=== PATIENT | female | born 1945 | race Caucasian/White ===

== ENCOUNTER 2021-07-30 14:14 | Inpatient (IN) | payer MEDICARE, OTHER, SELFPAY ==
[2021-07-30] VITALS (12 sets, daily range): BP systolic 123–140; BP diastolic 79–93; PULSE 83–96; RESP 13–21; TEMP 36.4–36.7; O2SAT 96–100; BMI 23.1
--- NOTE | 2021-07-30 14:16 | ED.CHESTPAIN ---
HPI - Chest Pain General Chief Complaint: Chest Pain Stated Complaint: stemi Time Seen by Provider: 07/30/21 14:15 Source: patient and EMS Mode of arrival: EMS Limitations: no limitations History of Present Illness HPI narrative: Patient is a 76-year-old female with a history of bladder cancer, basal cell carcinoma, presenting for evaluation of chest pain. Chest pain has been intermittent over the past 48 hours, patient took an ibuprofen this morning for worsening pain and then because she was on feeling improved called 911. At the time of EMS arrival, patient was diaphoretic and ill-appearing. Vital signs are stable. Patient was porting central chest pain and shortness of breath as well as diaphoresis. Patient denies history of heart attack. EMS performed a twelve-lead EKG which was concerning for STEMI. Patient was given full dose aspirin and Zofran in route. STEMI alert paged prior to the patient arriving in the ER. Related Data Allergies Allergy/AdvReac Type Severity Reaction Status Date / Time No Known Allergies Allergy Unverified 07/25/17 13:06 Review of Systems Review of Systems: CONSTITUTIONAL: Denies fever, reports feeling diaphoretic CARDIOVASCULAR: Reports chest pain RESPIRATORY: Denies cough or dyspnea. GASTROINTESTINAL: Denies abdominal pain, reports nausea SKIN: Denies rash MUSCULOSKELETAL: Denies back pain NEUROLOGIC: Denies headache [facility] Family History Family History (Updated 04/30/16 @ 15:21 by DOCTOR UNKNOWN) Sibling Patient's sister is in good health Family history of malignant neoplasm Mother Cerebrovascular accident, Onset Age: 90 Father Family history of lung cancer Social History Social History Smoking status: Current every day smoker Alcohol intake: never Exam Narrative: GENERAL: Awake, alert, diaphoretic, ill-appearing HEAD: Normocephalic, atraumatic. EYES: PERRLA and EOMI. ENT: Nares clear, no rhinorrhea or epistaxis. Mucous membranes moist. NECK: Supple. CHEST: Mildly tachypneic, no respiratory distress, breathing even and non labored HEART: Regular rate, sinus rhythm ABDOMEN:Non distended, non tender EXTREMITIES: Normal range of motion. No edema. SKIN: Warm, dry, no rash. NEURO:No focal deficits. Alert and oriented x3 MDM - Chest Pain MDM Narrative Medical decision making narrative: Patient presented via EMS as a STEMI alert prior to arrival. I reviewed the prearrival EKG and agreed with the STEMI interpretation. Patient arrived to the emergency department reporting chest pain. Patient hemodynamically stable. Dr. Dominguez present from interventional cardiology, present to take the patient immediately to the [employer]. He did not want the patient to wait in the emergency department for IV access, labs, chest x-ray or repeat EKG. Patient taken emergently to cardiac catheterization with Dr. Dominguez. Differential Diagnosis Differential diagnosis: Likely stable angina, unstable angina pectoris and st elevation myocardial infarction Discharge Plan Discharge Follow-up/Referrals: Clifford Ulrich MD [Primary Care Provider] -
--- NOTE | 2021-07-30 15:01 | ECG_ITS ---
Measurements Intervals [place] Rate: 88 P: 58 [place]: 161 QRS: 27 QRSD: 89 T: 81 QT: 365 QTc: 442 Interpretive Statements SINUS RHYTHM SUBTLE ST ELEVATION IN ANTERSEPTAL LEADS- CONSIDER ACUTE INFARCT BASELINE ARTIFACT- II, III, AVR, AVF, V2-V5 ABNORMAL ECG Electronically Signed On 07-30-2021 16:51:48 CDT by Manuel Laura D.O.
--- NOTE | 2021-07-30 15:06 | P.HP_ITS ---
H&P: HPI History of Present Illness Date/Time: 07/30/21 15:06 Chief Complaint: chest pain Narrative: this is a 76-year-old woman being seen briefly as she is being rolled through the emergency room after being dropped off by the ambulance with an acute anterior wall WV. the patient apparently has no history of heart disease and specifically very few other medical problems. She says she is a chronic cigarette smoker. She was at home sitting on the couch watching television this afternoon when she began to experience severe central pressure- like chest pain. An ambulance was called she ECG in the field was obviously diagnostic of an acute anterior wall WV and STEMI protocol was activated. She says she does not take any prescription medicine for anything and she is not allergic to any medications. Review of Systems Review of Systems: ROS unobtainable: Yes unobtainable due to medical condition PMFSH Family History Family History (Updated 04/30/16 @ 15:21 by DOCTOR UNKNOWN) Sibling Patient's sister is in good health Family history of malignant neoplasm Mother Cerebrovascular accident, Onset Age: 90 Father Family history of lung cancer Social History Social History Smoking status: Current every day smoker Alcohol intake: never Meds Home Medications and Allergies Allergies Allergy/AdvReac Type Severity Reaction Status Date / Time No Known Allergies Allergy Unverified 07/25/17 13:06 Exam Const: General: in distress and uncomfortable Other: Well-developed well- nourished white female appearing her stated age in significant distress with chest pain HENMT: Mouth: Yes moist mucous membranes Eyes: Sclera: sclerae normal Pupils: Equal, round and reactive pupils present Neck: Neck: supple and no JVD Other: normal carotid upstrokes no audible bruits Resp: Effort & Inspection: normal respiratory effort Auscultation: diminished lung sounds Other: breath sounds diminished in both lung montalvo Cardio: Rate: regular rate Rhythm: regular rhythm Other: PMI nondisplaced 4th heart sound is noted no murmur GI: GI Palp: Yes Soft to palpation Auscultation: normal bowel sounds Skin: General skin exam: normal color Neuro: Cognition (Neuro): normal cognition Extrem: General: normal to inspection Assessment and Plan Additional Plan 76-year-old white female, chronic cigarette smoker presenting with chest pain and acute ST-elevation anterior wall WV. She is being brought urgently to the cardiac catheterization lab for angiography and revascularization. Jameson Dominguez MD [facility]
--- NOTE | 2021-07-30 15:08 | WPDCARDPROC ---
Cardiac Cath Procedure Note Date of procedure:: 07/30/21 Performing physician:: Jameson Dominguez MD Indication:: anterior wall ST-elevation TN Brief clinical history:: this is a 76-year-old woman without previous cardiac history. She has a chronic cigarette smoker who came to the emergency room by ambulance with chest pain that began just prior to arrival. Her ECG in the field clearly shows evidence of acute anterior wall current of injury. Procedure Procedure performed:: Emergency coronary angiography emergency PCI(TINA) to the proximal left anterior descending left ventriculography Sedation/Medication given:: fentanyl 50 mg Versed 2 mg Access site:: right femoral artery Estimated blood loss:: 20 cc Procedure note:: patient was brought from the emergency room straight to the cardiac catheterization lab by passing the ED on the ambulance stretcher. 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 1% lidocaine was infiltrated in the femoral triangle. Using the modified Seldinger technique the femoral artery was punctured and a 6 Brazilian vascular sheath was placed. Following this I used a 6 Brazilian CLS 3.5 guiding catheter to engage and inject the left coronary artery in multiple projections. Cineangiograms were reviewed and PCI of the proximal LAD was recommended. Prior to PCI the patient received 180 mg of oral Brilinta. She did receive 4 baby aspirin on route to the hospital and received no additional aspirin catheterization lab. She was anticoagulated with bolus and infusion of Angiomax. Following this PCI of the LAD was carried out as detailed below. Immediately upon revascularization the patient developed sustained pulseless ventricular tachycardia which required electrical termination with 200 joule shock x1 which restored sinus rhythm. Following this the guiding catheter and wire was removed. I used a 5 Brazilian JR4 catheter to engage and inject the right coronary artery for diagnostic angiography. I then used a 5 Brazilian angled pigtail catheter to left-sided hemodynamics and to inject LV g in the MELENDREZ projection. Following this the sheath was sutured into position the patient was taken down to ICU room 3. For post TN PCI recovery. Findings:: Hemodynamics: The central aortic pressure is 148/82 left ventricle 148/0 end-diastolic pressure 16. No transaortic gradient left ventricle: The left ventricle is normal in size. The anterior wall is completely akinetic the global ejection fraction is about 35%. The left main coronary artery is short but nicely patent the left anterior descending appears to be a moderate caliber artery it is 100% occluded proximally prior to any diagonal or septal branches taking their origin. Angiographically this is consistent with an acute thrombotic occlusion. Circumflex is a moderate caliber artery giving rise to just 1 significant OM branch. The circumflex in this large OM branch are angiographically free of disease. The right coronary artery is moderate to large in caliber dominant to the posterior circulation there are minimal atherosclerotic luminal irregularities in the 2nd portion of the RCA it is however otherwise free of disease. It gives rise to a large RPDA and several RPL branches. Intervention: The LAD was wired using a 0.014 BMW coronary guidewire. The wire was advanced into the distal portion of the LAD. The target lesion was then pre-dilated using a 3 by 20 mm emerge PTCA balloon. Following baptism of flow as stated above the patient did have sustained ventricular tachycardia which had to be terminated electrically. Following that angiographically the LAD was nicely patent with LOLIS 3 flow in it however the target lesion was obviously dissected. I then withdrew the pre dilatation balloon and stented the area using a 3 x 30 mm [employer] sirolimus eluting stent deployed at 8 atmospheres with very good anatomical result
[2021-07-30 15:21] LABS: Basophils Absolute Auto 0.1 K/mm3 (0.0-0.1); Basophils Percent Auto 0.7 % (0.2-1.2); Eosinophils Absolute Auto 0.1 K/mm3 (0-0.3); Eosinophils Percent Auto 0.6 % (0-4.4); Hematocrit 44.3 % (37.0-47.0); Hemoglobin 15.3 g/dL (12.0-15.0); Immature Granulocyte Absolute 0.06 K/mm3 (0.00-0.031); Immature Granulocyte Percent A 0.5 % (0-0.5); Lymphocytes Absolute Auto 1.74 K/mm3 (0.9-3.2); Lymphocytes Percent Auto 15.7 % (18.3-44.2); Mean Corpuscular HGB Conc 34.5 g/dl (32-36); Mean Corpuscular Hemoglobin 30.5 pg (26-34); Mean Corpuscular Volume 88.4 fl (80-100); Mean Platelet Volume 9.6 fl (7.4-10.4); Monocytes Absolute Auto 0.6 K/mm3 (0.1-0.6); Monocytes Percent Auto 5.8 % (2.6-8.5); Neutrophils Absolute Auto 8.5 K/mm3 (1.3-6.7); Neutrophils Percent Auto 76.7 % (45.5-73.1); Platelet Count Result 273 k/mm3 (150-375); Red Blood Count 5.01 M/mm3 (4.2-5.4); Red Cell Distribution Width 13.4 % (11.5-14.5); White Blood Count 11.1 K/mm3 (4.5-10.0)
[2021-07-30 15:26] LABS: INR 0.8; Prothrombin Time 11.5 Seconds (11.1-14.7)
[2021-07-30 15:30] LABS: Anion Gap 9 mmol/L (8-16); Blood Urea Nitrogen 13 mg/dL (7-17); Calcium 9.9 mg/dL (8.4-10.2); Carbon Dioxide 20 mmol/L (22-30); Chloride 106 mmol/L (98-107); Estimated Glomerular Filt Rate > 60; Glucose 153 mg/dL (65-110); Potassium 3.8 mmol/L (3.4-5.0); Sodium 135 mmol/L (137-145)
[2021-07-30 15:35] LABS: Cholesterol 240 mg/dL (0-200); HDL Direct 74 mg/dL; Triglycerides 141 mg/dL (<150)
[2021-07-30 15:42] LABS: Magnesium 2.2 mg/dL (1.6-2.3)
[2021-07-30 15:46] LABS: LDL Cholesterol Direct 135 mg/dL
[2021-07-30 16:02] LABS: Troponin I 0.065 ng/mL (0.000-0.034)
--- NOTE | 2021-07-30 17:15 | PC.NURSE ---
Cardiop[facility] Rehab Services flyer was given to patient.
[2021-07-30] MEDS: SODIUM CHLORIDE 0.9% IV 1,000 ML 125 ML IV CONT (17:20)
[2021-07-30] MEDS: METOPROLOL TARTRATE 25 MG TABLET PO (21:50)
[2021-07-30] MEDS: TICAGRELOR 90 MG TABLET PO (21:50)
[2021-07-31] VITALS (15 sets, daily range): BP systolic 92–160; BP diastolic 62–89; PULSE 57–92; RESP 15–20; TEMP 36.2–36.8; O2SAT 96–100
--- NOTE | 2021-07-31 | ECHO_ITS ---
Patient Info Name: Jennifer Kline Age: 76 years : 1945 Gender: Female Ht: 67 in Wt: 147 lbs BSA: 1.78 m2 BP: 114 / 67 mmHg Exam Date: 07/31/2021 9:45 AM Exam Location: [facility] Patient Status: Inpatient Admit Date: 07/30/2021 Staff Ordering Physician: Brody Guzman MD [employer] Prospecting: Serafin Dupree, BENNY, RT Attending Provider: Jameson Dominguez MD Exam Type: CA echo dop color flow w con Study Info Indications I22.8 - Subsequent ST elevation (STEMI) myocardial infarction of other sites Complete two-dimensional, color flow and Doppler transthoracic echocardiogram is performed. Strain analysis performed. Summary 1. Complete two-dimensional, color flow and Doppler transthoracic echocardiogram is performed. 2. Definity Echo contrast was used. Normal LV size and wall thickness. Mild to moderate LV systolic dysfunction with segmental wall motion abnormality. Severely hypokinetic anteroseptum, anterior wall and anterior apical segment. No definite LV thrombus is seen. LVEF approximately 40-45%. Diastolic dysfunction is present. Normal mitral valve structure, trace TR. Aortic valve is mildly sclerotic with mildly calcific non coronary cusp; mild aortic stenosis, calculated aortic valve area 2.2 cm2. Trivial TR, mild pulmonary hypertension, RVSP 38 mmHg. Sinus rhythm. Left Ventricle Left ventricular chamber dimension is normal. Left ventricular systolic function is moderately reduced, estimated at 40-45%. There is no increased left ventricular wall thickness. The left ventricular diastolic function is abnormal. E/e' 15.50 is abnormal. Right Ventricle Right ventricular chamber dimension is normal. Right ventricular systolic function is normal. Left Atria Left atrial chamber dimension is normal. Right Atria Right atrial chamber dimension is normal. Aortic Valve There is mild aortic valve sclerosis. There is mild aortic valve stenosis with a peak velocity of 118.21 cm/s, mean gradient of 3 mmHg, and aortic valve area of 2.17 cm2. There is mild aortic valve calcification. Pulmonic Valve The pulmonic valve is not well visualized. Mitral Valve The mitral valve has normal leaflets. There is trace mitral valve regurgitation. Tricuspid Valve The tricuspid valve leaflets are normal. There is trace tricuspid valve regurgitation. Pericardium/Pleural The pericardium appears epicardial fat pad. There is no pericardial effusion. Inferior Vena Cava Normal inferior vena cava with >50% collapse upon inspiration consistent with normal right atrial pressure, 10 mmHg. Left Ventricular Outflow Tract Name Value Normal LVOT 2D LVOT Diameter 1.87 cm LVOT Doppler LVOT Peak Gradient 3 mmHg LVOT Mean Gradient 2 mmHg LVOT VTI 18.74 cm LVOT VTI/AV VTI Ratio 0.80 LVOT Stroke Volume 51.20 ml LVOT CO 2.97 l/min LVOT CI 1.67 L/min/m2 Mitral Valve
--- NOTE | 2021-07-31 05:11 | ECG_ITS ---
Measurements Intervals [place] Rate: 51 P: 59 [place]: 151 QRS: 46 QRSD: 80 T: 106 QT: 502 QTc: 466 Interpretive Statements SINUS BRADYCARDIA SEPTAL INFARCT, PROBABLY RECENT T WAVE ABNORMALITY IN HIGH LATERAL LEADS- CONSIDER ISCHEMIA ABNORMAL ECG Electronically Signed On 07-31-2021 12:35:15 CDT by Manuel Laura D.O.
[2021-07-31] MEDS: ASPIRIN 81 MG CHEWABLE TABLET PO (08:43)
[2021-07-31] MEDS: ROSUVASTATIN 10 MG TABLET 20 MG PO (08:44)
[2021-07-31] MEDS: METOPROLOL TARTRATE 25 MG TABLET PO ×2 (08:44→20:30)
[2021-07-31] MEDS: ACETAMINOPHEN 325 MG TABLET 650 MG PO (08:44)
[2021-07-31] MEDS: TICAGRELOR 90 MG TABLET PO ×2 (08:44→20:30)
[2021-07-31] MEDS: lisinopriL 5 MG TABLET PO (08:45)
--- NOTE | 2021-07-31 08:51 | WPDCNINT ---
Assessment and Plan Assessment and plan (1) ST elevation (STEMI) myocardial infarction: Code(s): I21.3 - ST elevation (STEMI) myocardial infarction of unspecified site Status: Acute Assessment and Plan: Acute anterior wall MT with 100% thrombotic occlusion of the proximal LAD s/p successful PCI with angioplasty and stenting. Currently chest pain-free Continue telemetry monitoring Dual antiplatelet therapy with aspirin and Brilinta Statin CATHRYN-inhibitor and beta-kingsley (2) Ischemic cardiomyopathy: Code(s): I25.5 - Ischemic cardiomyopathy Status: Acute Assessment and Plan: EF 35% on ventriculogram during the catheterization. This could be stunned myocardium Check echocardiogram CATHRYN-inhibitor and beta-kingsley as above mentioned (3) Smoking: Code(s): F17.200 - Nicotine dependence, unspecified, uncomplicated Status: Acute Assessment and Plan: Patient was counseled and encouraged to quit smoking for 3-5 minutes (4) Back pain: Code(s): M54.9 - Dorsalgia, unspecified Status: Acute Assessment and Plan: Chronic musculoskeletal P.r.n. 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 patient states that she started having pain in middle of her chest around 1:00 p.m. yesterday, pain was 8/10 severe, radiated to her neck and both arms, pressure-like quality, no aggravating or relieving factors pain continued until the middle of her cardiac catheterization procedure when it resolved. Has not had any pain since then. Her chest pain was associated with feeling cold and clammy and diaphoretic. No shortness of breath nausea vomiting. Patient states that she had similar symptoms on 2 days prior which lasted only 5 minutes and resolved spontaneously.. On arrival to ER patient was diagnosed with ST segment elevation MT and was taken to cardiac catheterization lab where she was found to be having 100% occlusion of LAD and underwent PCI. Patient was admitted to ICU postprocedure. At this time patient denies any complaint except back pain from lying in bed for 6 hours. She states that she does have chronic back pain and takes Tylenol off and on at home. All other systems were reviewed and were negative. She does smoke 1 pack per day and has been smoking for 58 years, denies any drug use or alcohol use, she is fully vaccinated against COVID. She denies any past medical or surgical history except being intolerant to milk Review of Systems Review of Systems: All systems reviewed & are unremarkable except as noted in HPI and below (HPI) COUNT INCLUDES THE [facility] Family History Family History Sibling Patient's sister is in good health Family history of malignant neoplasm Mother Cerebrovascular accident, Onset Age: 90 Father Family history of lung cancer Social History Social History Smoking packs per day: 1 Smoking cigarettes per day: 20.0 Years smoked: 58 Smoking pack-years: 58.00 Smoking status: Current every day smoker Tobacco type: cigarettes Alcohol intake: never Substance use: never Substance use type: does not use Spiritual care concerns: No Meds Home Medications and Allergies Allergies Allergy/AdvReac Type Severity Reaction Status Date / Time No Known Allergies Allergy Unverified 07/25/17 13:06 Vital Signs Vital Signs - 24 hr 07/30/21 15:16 07/30/21 15:46 07/30/21 16:00 Temperature 36.7 C Pulse Rate 83 90 89 Respiratory Rate 18 18 13 Blood Pressure 123/85 126/82 Pulse Oximetry 97 98 98 07/30/21 16:46 07/30/21 18:00 07/30/21
--- NOTE | 2021-07-31 08:58 | PM.PNCARD ---
Progress Note: A&P Assessment and Plan (1) ST elevation (STEMI) myocardial infarction: Code(s): I21.3 - ST elevation (STEMI) myocardial infarction of unspecified site Status: Acute Assessment and Plan: Patient status post primary PCI/placement of 3 x 30 mm Or[employer]ro sirolimus eluting stent in the proximal LAD. -dual antiplatelet therapy with aspirin and ticagrelor. -beta kingsley, CATHRYN-inhibitor. -increase rosuvastatin to 40 mg p.o. q.h.s.. Current LDL 135, target LDL would be less than 70. -echo/Doppler with contrast to reassess LVEF and rule out apical thrombus given large anterior SD with anterior akinesis at presentation. -may transfer to IMU (2) Tobacco abuse: Code(s): Z72.0 - Tobacco use Status: Acute Assessment and Plan: Smoking cessation counseling was done. Subjective Date/time seen: 07/31/21 08:58 Patient presented with anterior SD, status post primary PCI/TINA proximal LAD; LVEF 35% with anterior wall akinesis. Date of service 07/31/2021-patient denies resolution of chest pain. No dyspnea at rest. On telemetry, she has been in sinus rhythm. Exam Narrative: PHYSICAL EXAMINATION: GENERAL: Alert, oriented, no acute distress MENTAL STATUS: affect appropriate to mood EYES: Extraocular movements intact, no pallor EARS: External ears appear normal, hearing grossly normal NOSE: Normal and patent, no discharge MOUTH: Mucous membranes moist, tongue normal NECK: Supple, no JVD CHEST: Coarse breath sounds HEART: Normal rate, regular rhythm, slightly distant heart sounds; S4 gallop ABDOMEN: Soft, nontender NEUROLOGICAL: Alert, oriented, normal speech, no gross motor deficits MUSCULOSKELETAL: No major deformity, no amputation EXTREMITIES: No pedal edema, right groin access site unremarkable SKIN: no rash on the exposed area, no cyanosis PSYCHIATRIC: Normal mood, appropriate affect Objective Data Vital Signs Vital Signs: Vital Signs - 24 hr 07/30/21 15:16 07/30/21 15:46 07/30/21 16:00 Temperature 36.7 C Pulse Rate 83 90 89 Respiratory Rate 18 18 13 Blood Pressure 123/85 126/82 Pulse Oximetry 97 98 98 07/30/21 16:46 07/30/21 18:00 07/30/21 18:26 Temperature Pulse Rate 85 96 89 Respiratory Rate 13 20 13 Blood Pressure 137/83 140/87 140/87 Pulse Oximetry 98 100 97 07/30/21 18:40 07/30/21 19:41 07/30/21 20:41 Temperature 36.4 C 36.4 C Pulse Rate 90 84 84 Respiratory Rate 18 21 H 19 Blood Pressure 135/93 H 124/79 127/86 Pulse Oximetry 98 97 97 07/30/21 21:41 07/30/21 21:50 07/30/21 22:41 Temperature 36.5 C 36.4 C Pulse Rate 87 85 86 Respiratory Rate 21 H 17 Blood Pressure 135/87 136/88 Pulse Oximetry 97 96 07/31/21 00:00 07/31/21 02:00 07/31/21 04:00 Temperature 36.6 C 36.8 C Pulse Rate 74 74 74 Respiratory Rate 20 18 19 Blood Pressure 132/89 126/68 137/67 Pulse Oximetry 97 97 97 07/31/21 06:00 07/31/21 08:00 Temperature 36.6 C Pulse Rate 78 67 Respiratory Rate 16 16 Blood Pressure 123/79 114/67 Pulse Oximetry 96 98 Intake/Output Intake/Output: Intake & Output 07/28/21 07/29/21 07/30/21 07/31/21 23:59 23:59 23:59 23:59 Intake Total 240 240 Output Total 575 175 Balance -335 65 Meds/Results Medications: Active Medications Generic Name Dose Route Start Last Admin Trade Name Freq PRN Reason Stop Dose Admin Acetaminophen 650 mg 07/31/21 00:00 07/31/21 08:44 Acetaminophen 325 Mg Tablet PO 650 mg Q4H PRN Administration Mild Pain (1-3) or Fever Hydrocodone Bitart/Acetaminophen 1 tab 07/31/21 08:54 Hydrocodone/Acetaminophen (*Crx) 5-325 Mg Tablet PO Q4H PRN Pain Rated 6 or Greater Aspirin 81 mg 07/31/21 08:00 07/31/21 08:43 Aspirin 81 Mg Chewable Tablet PO 81 mg DAILY@0800 DEVORAH Administration Lisinopril 5 mg 07/31/21 09:00 07/31/21 08:45 Lisinopril 5 Mg Tablet PO 5 mg DAILY DEVORAH Administration Metoprolol Tartrate 25 mg 07/30/21 21:00
[2021-07-31] MEDS: PERFLUTREN LIPID MICROSPHERES 1.5 ML VIAL DILUTED TO 10 ML TOTAL VOLUME IV PUSH (10:08)
--- NOTE | 2021-07-31 18:05 | PC.NURSE ---
This patient, Jennifer Kline, was transferred to [facility] on 07/31/21 at 1730. Personal belongings sent with patient. Report given to Slime LOPEZ. Appropriate documentation sent with patient.
[2021-08-01] VITALS (7 sets, daily range): BP systolic 98–100; BP diastolic 47–70; PULSE 67–999; RESP 12–20; TEMP 36.3–36.6; O2SAT 83–100
[2021-08-01] MEDS: ROSUVASTATIN 10 MG TABLET 40 MG PO (08:20)
[2021-08-01] MEDS: TICAGRELOR 90 MG TABLET PO (08:20)
[2021-08-01] MEDS: ASPIRIN 81 MG CHEWABLE TABLET PO (08:20)
[2021-08-01] MEDS: METOPROLOL TARTRATE 25 MG TABLET PO (08:21)
[2021-08-01] MEDS: lisinopriL 5 MG TABLET PO (08:21)
--- NOTE | 2021-08-01 13:26 | PM.DS ---
DS: Admitting Diagnosis Discharge Date August 01, 2021 Admitting Diagnosis Acute anterior wall myocardial infarction DS: Discharge Diagnosis Discharge Diagnosis (1) ST elevation (STEMI) myocardial infarction: Code(s): I21.3 - ST elevation (STEMI) myocardial infarction of unspecified site Status: Acute (2) Smoking: Code(s): F17.200 - Nicotine dependence, unspecified, uncomplicated Status: Acute DS: Summary Hospital Course Reason for hospitalization: Anterior ST-elevation LA Hospital Course: This is a 76-year-old woman without previous cardiac history but a longstanding history of smoking. She presented to the hospital with chest pain and in the field was found by EMS to have evidence of acute anterior lateral myocardial infarction. She was brought emergently to the cardiac catheterization lab by passing the ER angiographically as expected was found to have a proximal acute occlusion of the left anterior descending. There was no significant circumflex or right coronary disease. She underwent successful PCI involving angioplasty and stenting of the target lesion in the LAD. Following pre dilatation there was a localized dissection at the site of the original occlusion. This did not propagate down the artery and was resolved angiographically following stent deployment. She had no other post LA complications was transferred to the ICU yesterday she is ambulating today and appears to be a good candidate for discharge. Troponin level following admission peaked at 7.6. She was placed on dual anti-platelet therapy, beta kingsley CATHRYN-inhibitor and statin. Follow-up will be scheduled in the office in 2-3 weeks. Time spent discussing smoking cessation with patient: more than 10 minutes Status at Discharge Functional status at discharge: independent ambulation Overall status at discharge: patient is back to baseline Time Spent with Patient Time attestation: Total time spent providing and/or coordinating discharge services: Time spent: Less than 30 minutes Exam Const: General: comfortable and no acute distress Other: Pleasant lady appearing her stated age no distress HENMT: Mouth: Yes moist mucous membranes Eyes: Sclera: sclerae normal Pupils: Equal, round and reactive pupils present Neck: Neck: supple and no JVD Resp: Effort & Inspection: normal respiratory effort Auscultation: clear to auscultation bilaterally Cardio: Rate: regular rate Rhythm: regular rhythm Other: PMI nondisplaced no murmur no gallop GI: GI Palp: Yes Soft to palpation Auscultation: normal bowel sounds Skin: General skin exam: normal color Neuro: General: gait normal Extrem: General: normal to inspection Discharge Plan Discharge Attending physician on discharge: Jameson Dominguez Discharging Clinician: Jameson Dominguez Patient Disposition: Home, Self-Care Activity: as tolerated Diet: heart healthy Discharge Instructions: Patient is not to lift more than 20 lb until being seen in the office to and restrict herself to sedentary activity at home and to adhere to a heart healthy diet cessation of cigarette smoking was stressed. Patient Instructions: Antibiotic Form, How to Stop Smoking (DC) Stand Alone Forms: General Discharge Information Follow-up/Referrals: Jameson Dominguez MD [Physician] - Discharge Medications: New aspirin [Children's Aspirin] 81 mg Tablet,Chewable 81 mg PO DAILY@0800 Qty: 30 RF: 5 nitroglycerin [Nitrostat] 0.4 mg Tablet, Sublingual 0.4 mg sublingual Q5MIN PRN (Reason: Chest Pain) Qty: 30 RF: 2 Brilinta 90 mg Tablet 90 mg PO Q12HR Qty: 60 RF: 5 lisinopril 5 mg Tablet 5 mg PO DAILY Qty: 30 RF: 5 rosuvastatin [Crestor] 10 mg Tablet 20 mg PO QAM Qty: 30 RF: 5 metoprolol succinate [Toprol XL] 25 mg Tablet Extended Release 24 Hr 25 mg PO QAM Qty: 30 RF: 5 Date of admission: 07/30/21 14:15 Primary Care Provider: Clifford Ulrich
== END 2021-08-01 16:16 | disposition home or self-care (01) | DRG 247 ==
LOC: ANHED 14:21 → ANHICU 14:55 → ANHIMU 07-31 17:17
PROVIDERS: Admitting Provider Specialist; Emergency Provider Emergency Medicine; PCP Internal Medicine; Visit Provider Specialist
PROC: 4A023N7 Measurement of Cardiac Sampling and Pressure, Left Heart, Percutaneous Approach (ICD-10-PCS; CPT 93452; principal; 2021-07-30 14:20)
PROC: 027034Z Dilation of Coronary Artery, One Artery with Drug-eluting Intraluminal Device, Percutaneous Approach (ICD-10-PCS; 2021-07-30 14:20)
DX: I21.02 ST elevation (STEMI) myocardial infarction involving left anterior descending coronary artery (principal); I47.2 Ventricular tachycardia; I97.790 Other intraoperative cardiac functional disturbances during cardiac surgery; I25.5 Ischemic cardiomyopathy; M54.9 Dorsalgia, unspecified; F17.210 Nicotine dependence, cigarettes, uncomplicated; Z85.828 Personal history of other malignant neoplasm of skin; Z85.51 Personal history of malignant neoplasm of bladder
CPT/HCPCS: 36415; 80048; 80061; 83735; 84484; 85025; 85610; 93005; 93458; 99285; A9270; C1725; C1874; C1887; C1894; C8929; C9606; J0131; J0583; J1644; J7030; J7040; Q9957

== ENCOUNTER 2021-11-21 13:30 | Outpatient (RCR) | payer MEDICARE, OTHER, SELFPAY ==
[2021-08-28 15:39] VITALS: BP 124/70; PULSE 54; RESP 16; O2SAT 97
[2021-08-29 07:25] VITALS: PULSE 54
== END 2021-11-22 15:31 | disposition home or self-care (01) ==
LOC: ANHCPREHAB 13:30
PROVIDERS: Visit Provider Specialist
DX: Z95.5 Presence of coronary angioplasty implant and graft (principal); I25.2 Old myocardial infarction
CPT/HCPCS: 93798

== ENCOUNTER 2023-01-08 08:11 | Outpatient (CLI) | payer MEDICARE, OTHER, SELFPAY ==
[2023-01-08 08:50] LABS: Alanine Aminotransferase 21 U/L (6-35); Albumin Level 4.2 g/dL (3.5-5.1); Alkaline Phosphatase 101 U/L (38-126); Anion Gap 6 mmol/L (8-16); Aspartate Amino Transferase 23 U/L (14-36); Bilirubin,Total 0.5 mg/dL (0.2-1.3); Blood Urea Nitrogen 17 mg/dL (7-17); Calcium 9.3 mg/dL (8.4-10.2); Carbon Dioxide 25 mmol/L (22-30); Chloride 107 mmol/L (98-107); Cholesterol 153 mg/dL (0-200); Estimated Glomerular Filt Rate > 60; Glucose 84 mg/dL (65-110); HDL Direct 76 mg/dL; Potassium 4.2 mmol/L (3.4-5.0); Sodium 138 mmol/L (137-145); Triglycerides 84 mg/dL (<150)
[2023-01-08 09:01] LABS: LDL Cholesterol Direct 56 mg/dL
== END 2023-01-08 08:12 | disposition home or self-care (01) ==
LOC: ANHLAB 08:14
PROVIDERS: PCP Physician Assistant Medical; Visit Provider Physician Assistant Medical
DX: E78.2 Mixed hyperlipidemia (principal)
CPT/HCPCS: 36415; 80053; 80061

== ENCOUNTER 2023-02-18 01:18 | Day surgery (SDC) | payer MEDICARE, OTHER, SELFPAY ==
[2023-01-15 13:44] VITALS: BMI 25.2
[2023-02-18 09:25] VITALS: BP 141/91; PULSE 88; RESP 18; TEMP 36.6; O2SAT 100; BMI 25.0
--- NOTE | 2023-02-18 09:49 | PM.HPGS ---
History of Present Illness History of Present Illness Consent: Risks, benefits, and alternatives have been discussed and questions answered. Patient agrees to proceed with procedure. Chief complaint: globus sensation, neoplasm screening Narrative: Jennifer Kline is a 77 year old female Referred for both colonoscopy and EGD. Patient complains of regurgitation when bending over that began after for recent myocardial infarction. She denies any specific dysphagia. She does feel like something abnormal is in the back of her tongue. She empirically has been treated with omeprazole and states that the regurgitation has resolved. The abnormal sensation at the base of her tongue has not resolved. She is referred for EGD to exclude organic disease in the esophagus. She has not yet seen ENT. Additionally patient has a brother who has had colon cancer. 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 Patient underwent colonoscopy 5 years ago and was found to have a rectal lesion. It was suspected she had a submucosal lesion. A small area of inflammation in the rectum was biopsied and showed nonspecific proctitis. No evidence of cancer was identified on those biopsies at that time. Patient currently has vague complaints of irregular stools that her difficult for her to describe. A colonoscopy is recommended for screening at this time. Review of Systems Review of Systems: Review of systems noncontributory. [facility] Past Medical History Medical History (Updated 02/18/23 @ 09:53 by Kevin Hammonds MD) Coronary artery disease (CAD) excluded Family hx of colon cancer Gall bladder disease Globus sensation Heart disease Hypoglycemia Ulcerative (chronic) proctitis Surgical History Surgical History H/O heart artery stent Family History Family History Sibling Family history of malignant neoplasm Patient's sister is in good health Colon cancer Mother Cerebrovascular accident, Onset Age: 90 Father Family history of lung cancer Hypoglycemia Other History of thyroid disorder Lung cancer Social History Social History Smoking packs per day: 1.5 Smoking cigarettes per day: 30.0 Years smoked: 55 Smoking pack-years: 82.50 Smoking status: Former smoker Tobacco type: cigarettes Alcohol intake: never Substance use: never Substance use type: does not use Lack of Transportation: No Lack of Food: Never True Current Housing: I Have Housing Concerned About Future Housing: No Difficulty Paying Gas/Electric Bills: No Difficulty Paying for Meds: No Currently Unemployed: No Education: Trade/Vocational Certificate Difficulty w/ Childcare or Family Care: No Living arrangements: alone Occupation/Education: retired Gender identity (if verbalized by the patient): Female Sexual Orientation (if Verbalized by the Patient): Straight or Heterosexual Spiritual care concerns: No Agree to blood products: Yes Meds Home Medications and Allergies Home Medications Medication Instructions Recorded Confirmed Type aspirin 81 mg chewable tablet 81 mg PO DAILY@0800 #30 tabs 08/01/21 01/31/23 Rx (Children's Aspirin) rosuvastatin 10 mg tablet (Crestor) 20 mg PO QAM #30 tabs 08/01/21 01/31/23 Rx omeprazole 40 mg capsule,delayed 40 mg PO DAILY #90 caps 01/20/23 01/31/23 Rx release Allergies Allergy/AdvReac Type Severity Reaction Status Date / Time No Known Allergies Allergy Verified 01/31/23 15:12 Vital Signs Vital Signs - 24 hr 02/18/23 09:25 Temperature 98 F Pulse Rate 88 Respiratory Rate 18 Blood Pressure 141/91 H Pulse Oximetry 100 Oxygen Delivery Room Air Exam Narrative: Physical exam reveals patient to be alert. Vital signs stable. HEENT exam is unremarkable. Patient is a
[2023-02-18] MEDS: LACTATED RINGERS 1,000 ML 150 ML IV CONT (09:56)
--- NOTE | 2023-02-18 10:04 | WPDANESEPPF ---
Anes - Initial Pre Proc Eval Procedure: Operation Date: 02/18/23 10:45 Proposed Procedures p Esophagogastroduodenoscopy & Screening Colonoscopy - Kevin Hammonds MD Date/Time: 02/18/23 10:04 Surgeon: Kevin Hammonds MD Pre Op Diagnosis: globus sensation, neoplasm screening Patient Data Age: 77 Gender: F Height: 1.7 m Weight: 72.4 kg Last Vital Signs Temp 98 F 02/18/23 09:25 Pulse 88 02/18/23 09:25 Resp 18 02/18/23 09:25 BP 141/91 H 02/18/23 09:25 Pulse Ox 100 02/18/23 09:25 O2 Del Method Room Air 02/18/23 09:25 Allergies Allergy/AdvReac Type Severity Reaction Status Date / Time No Known Allergies Allergy Verified 01/31/23 15:12 Home Medications Medication Instructions Recorded Confirmed Type aspirin 81 mg chewable tablet 81 mg PO DAILY@0800 #30 tabs 08/01/21 01/31/23 Rx (Children's Aspirin) rosuvastatin 10 mg tablet (Crestor) 20 mg PO QAM #30 tabs 08/01/21 01/31/23 Rx omeprazole 40 mg capsule,delayed 40 mg PO DAILY #90 caps 01/20/23 01/31/23 Rx release Patient hx anesthesia problems: none Family hx anesthesia problems: none Results Review: All pre-operative results and documents have been reviewed as part of the pre-operative evaluation. [facility] Past Medical History Medical History (Updated 02/18/23 @ 09:53 by Kevin Hammonds MD) Coronary artery disease (CAD) excluded Family hx of colon cancer Gall bladder disease Globus sensation Heart disease Hypoglycemia Ulcerative (chronic) proctitis Surgical History Surgical History H/O heart artery stent Family History Family History Sibling Family history of malignant neoplasm Patient's sister is in good health Colon cancer Mother Cerebrovascular accident, Onset Age: 90 Father Family history of lung cancer Hypoglycemia Other History of thyroid disorder Lung cancer Social History Social History Smoking packs per day: 1.5 Smoking cigarettes per day: 30.0 Years smoked: 55 Smoking pack-years: 82.50 Smoking status: Former smoker Tobacco type: cigarettes Alcohol intake: never Substance use: never Substance use type: does not use Lack of Transportation: No Lack of Food: Never True Current Housing: I Have Housing Concerned About Future Housing: No Difficulty Paying Gas/Electric Bills: No Difficulty Paying for Meds: No Currently Unemployed: No Education: Trade/Vocational Certificate Difficulty w/ Childcare or Family Care: No Living arrangements: alone Occupation/Education: retired Gender identity (if verbalized by the patient): Female Sexual Orientation (if Verbalized by the Patient): Straight or Heterosexual Spiritual care concerns: No Agree to blood products: Yes Anes - Eval Final PreProcedure Day of Procedure 02/18/23 10:04 Patient weight: normal Heart: regular rate and rhythm Lungs: clear to auscultation Airway: Mallampati scale class II Neurological: alert and oriented Last oral intake: >/= 8 hours ASA classification: III Emergent: no Anesthetic plan: proceed Anesthesia type and monitoring: general GIVS and standard monitoring Results Review: All pre-operative results and documents have been reviewed as part of the pre-operative evaluation. Informed Consent: The patient's anesthetic plan and its attendant risks and benefits were discussed with the patient/family/POA. Questions were solicited and answers provided to the satisfaction of the patient/family/POA.
--- NOTE | 2023-02-18 11:04 | SUR.OPER ---
EGD START: 1039; END: 1041. COLONOSCOPY START: 1048; END: 1104.
[2023-02-18 11:07] VITALS: BP 135/77; PULSE 72; RESP 20; O2SAT 100
[2023-02-18 11:17] VITALS: BP 126/70; PULSE 74; RESP 18; O2SAT 100
[2023-02-18 11:27] VITALS: BP 139/78; PULSE 72; RESP 18; O2SAT 100
== END 2023-02-18 11:34 | disposition home or self-care (01) ==
PROVIDERS: PCP Physician Assistant Medical; Visit Provider Internal Medicine Gastroenterology
PROC: 0DJ08ZZ Inspection of Upper Intestinal Tract, Via Natural or Artificial Opening Endoscopic (ICD-10-PCS; CPT 43235; principal; 2023-02-18 10:45)
DX: Z12.11 Encounter for screening for malignant neoplasm of colon (principal); D12.2 Benign neoplasm of ascending colon; D12.4 Benign neoplasm of descending colon; K62.89 Other specified diseases of anus and rectum; K22.2 Esophageal obstruction; R11.10 Vomiting, unspecified; Z85.59 Personal history of malignant neoplasm of other urinary tract organ; Z80.0 Family history of malignant neoplasm of digestive organs; Z87.891 Personal history of nicotine dependence; Z79.82 Long term (current) use of aspirin
CPT/HCPCS: 45385; 43450; 43235; 88305; J2704; J7120

== ENCOUNTER 2023-04-07 08:12 | Outpatient (CLI) | payer MEDICARE, OTHER, SELFPAY ==
--- NOTE | ~2023-04-07 | XR_ITS ---
EXAMINATION: XR barium swallow DATE: 04/07/2023 09:08 INDICATION: Gastroesophageal reflux disease without esophagitis TECHNIQUE: The patient drank thick barium, gas-producing crystals, and thin barium. Fluoroscopic spot radiographs of the hypopharynx and esophagus were obtained. Fluoroscopy exposure time was minutes. COMPARISON: None. FINDINGS: The pharynx is symmetric and without evidence of mass lesion or mucosal irregularity. The e sophagus is normal without mass or stricture. Esophageal motility is normal. Small sliding-type hiata l hernia with esophageal B ring without evident stricture at the gastroesophageal junction position a pproximately 5-6 cm above level of the diaphragm. There is gastroesophageal reflux into both the intr athoracic portion of the stomach and the inferior esophagus with provocative maneuvers. IMPRESSION: 1. Small sliding-type hiatal hernia with gastroesophageal reflux. Reviewed, dictated and finalized at location A.
== END 2023-04-07 08:13 | disposition home or self-care (01) ==
PROVIDERS: PCP Physician Assistant Medical; Visit Provider Otolaryngology
DX: K21.9 Gastro-esophageal reflux disease without esophagitis (principal); R11.10 Vomiting, unspecified; K44.9 Diaphragmatic hernia without obstruction or gangrene
CPT/HCPCS: 74220

== ENCOUNTER 2024-02-13 07:16 | Outpatient (CLI) | payer MEDICARE, OTHER, SELFPAY ==
[2024-02-13 08:41] LABS: Cholesterol 212 mg/dL (0-200); HDL Direct 61 mg/dL; Triglycerides 112 mg/dL (<150)
[2024-02-13 08:54] LABS: LDL Cholesterol Direct 121 mg/dL
== END 2024-02-13 07:17 | disposition home or self-care (01) ==
PROVIDERS: PCP Physician Assistant Medical; Visit Provider Specialist
DX: I25.10 Atherosclerotic heart disease of native coronary artery without angina pectoris (principal); Z95.5 Presence of coronary angioplasty implant and graft; I25.2 Old myocardial infarction
CPT/HCPCS: 36415; 80061